=== PATIENT | female | born 1950 | race Caucasian/White ===

== ENCOUNTER 2017-02-02 12:10 | Emergency (ER) | payer MEDICARE, OTHER ==
--- NOTE | ~2017-02-02 | CR278 ---
[facility] A Service of [facility] RADIOLOGY TEXT RESULTS PATIENT: BETTE ALDRIDGE LOCATION: SED : 46 UNIT #: [id number] AGE: [address]: Eileen Gill APRN SEX: F ORDER DR: [id number] [address] [address] [id number] MR#: [id number] Acc #: [id number] NAME: BETTE ALDRIDGE : 1950 SEX: F STUDY DATE/TIME: 02/02/2017 11:27 UNIT: SED ROOM: STUDY DESCRIPTION: CR Wrist 2 View Lt Attending Physician: Eileen Gill A.P.R.N. Referring Physician: Eileen Gill A.P.R.N. Ordering Physician: Eileen Rutledge A.P.R.N. Primary Care Physician: Slade Boo M.D. MEDICAL IMAGING REPORT This report is preliminary unless electronic signature is present. EXAM Left wrist HISTORY Wrist pain and swelling. Injured 1 hour prior to arrival TECHNIQUE 2 views of the wrist were obtained. FINDINGS 2 views wrist show dorsal soft tissue swelling. There appears to be a small avulsion fracture seen dorsally probably from the triquetrum. The scaphoid is intact. Degenerative changes are seen at the first carpometacarpal complex with joint space narrowing and osteophytes. IMPRESSION Small avulsion fracture seen dorsally likely from the triquetrum. It is minimally displaced. No additional fractures are seen. Degenerative changes are noted at the first carpometacarpal complex. Dictated by... Donald Steen M.D. THIS IS AN ELECTRONICALLY VERIFIED REPORT Donald Steen M.D. at 02/05/2017 9:46 AM SELENE/conor TD: 02/02/2017 22:28 JOB #: [id number] MEDICAL IMAGING REPORT [facility] A Service [facility] RADIOLOGY TEXT RESULTS PATIENT: BETTE ALDRIDGE [place] [facility] [place] UNIT #: [id number] AGE: [address]: Eileen Gill APRN SEX: F ORDER DR: Page 1 of 1
[~2017-02-02 12:10] MED LIST: AMITRIPTYLINE100 MG PO; ASPIRIN81 M1 PO; FLAGYL PO; LEVEMIR100 U/ML INJ; LEVEMIR100 UNITS/; LEVOTHYROXINE50 MC1 PO; LIPITOR20 MG PO; LISINOPRIL-HCTZ1 T15 PO; LOPRESSOR PO; LORTAB 5/500 TA1 TA1 PO; METFORMIN HCL750 MG PO; METOPROLOL TAR25 MG PO; MIRALAX17 GM PO; ONGLYZA5 MG PO; PANTOPRAZOLE SO40 MG PO; PLETAL100 M1 PO; PLETAL100 MG PO; PROTONIX PO; SYNTHROID PO; TRAMADOL HCL50 M2 PO; ZESTORETIC 20-1 EACH PO
== END 2017-02-02 12:17 | disposition home or self-care (01) ==
LOC: SED 12:10
DX: S62.112A Displaced fracture of triquetrum [cuneiform] bone, left wrist, initial encounter for closed fracture (principal); S01.111A Laceration without foreign body of right eyelid and periocular area, initial encounter; Z23 Encounter for immunization; Z95.1 Presence of aortocoronary bypass graft; Z90.49 Acquired absence of other specified parts of digestive tract; Z98.51 Tubal ligation status; W01.0XXA Fall on same level from slipping, tripping and stumbling without subsequent striking against object, initial encounter; Y92.009 Unspecified place in unspecified non-institutional (private) residence as the place of occurrence of the external cause
CPT/HCPCS: 12011; 29125; 73100; 90471; 90715; 99283; 99284